=== PATIENT | female | born 1945 | race Caucasian/White ===

== ENCOUNTER 2021-12-15 09:18 | Inpatient (IN) ==
--- NOTE | 2021-11-15 16:09 | PAT Medication Instructions ---
Medication Instructions Date of Service November 15, 2021 Home Medications acetaminophen 500 mg capsule 500 mg PO UD PRN amlodipine 10 mg tablet 10 mg PO QAM aspirin 81 mg tablet,delayed release 81 mg PO HS cholecalciferol (vitamin D3) 50 mcg (2,000 unit) capsule (Vitamin D3) 50 mcg PO QPM famotidine 20 mg tablet 20 mg PO QAM lactobacillus combination no.4 3 billion cell capsule (Probiotic) 3,000 mmu cells PO QAM levothyroxine 50 mcg tablet 50 mcg PO QAM melatonin 5 mg capsule 5 mg PO HS olmesartan 40 mg tablet 40 mg PO QPM sertraline 50 mg tablet 50 mg PO QAM ASK your prescriber and surgeon aspirin 81 mg tablet,delayed release 81 mg PO HS DO NOT take the morning of surgery lactobacillus combination no.4 3 billion cell capsule (Probiotic) 3,000 mmu cells PO QAM Take morning of surgery With a small sip of water, OTHERWISE NOTHING TO EAT OR DRINK AFTER MIDNIGHT: acetaminophen 500 mg capsule 500 mg PO UD PRN (okay to take up to 4 hours prior to surgery if needed) amlodipine 10 mg tablet 10 mg PO QAM famotidine 20 mg tablet 20 mg PO QAM levothyroxine 50 mcg tablet 50 mcg PO QAM sertraline 50 mg tablet 50 mg PO QAM Take evening before surgery acetaminophen 500 mg capsule 500 mg PO UD PRN (if needed) cholecalciferol (vitamin D3) 50 mcg (2,000 unit) capsule (Vitamin D3) 50 mcg PO QPM melatonin 5 mg capsule 5 mg PO HS olmesartan 40 mg tablet 40 mg PO QPM Other Notes If you have any questions please call us at [phone] or [phone] or [phone] or [phone]
--- NOTE | 2021-11-17 10:08 | Anesthesiology Consultation ---
Date of Service November 17, 2021 Assessment & Plan (1) Encounter for pre-operative examination: Chart Review Chart Review: Acceptable Risk for Surgery (pending surgeon ordered PCP clearance, PCP response regarding murmur and possible carotid testing, previous head CT scan and preop Covid testing results ) and Patient seen in Pre Admission Testing - Awaiting PCP clearance scheduled 12/01/21 (will send note to PCP regarding if murmur is stable and if patient has ever had carotid imaging done (carotid bruits vs murmur radiation) - Will attempt to get copy of previous [address] done at [facility] (Dr. Bui office may have copy as well) Per PAT appt on 11/17/21, patient denies any recent travel or large group activities. No known Covid positive exposures or Covid related symptoms. No known Covid infection in the past 90 days. Pt is NOT vaccinated for Covid. Preop Covid testing scheduled 12/13/21 = will await results. Educated on importance of self quarantining, social distancing and wearing mask in public for the patient one week prior to surgery and after Covid testing done Teaching & Discussion Pre-Anesthesia Teaching/Discussion Notes: Instructed NPO after midnight before surgery,except medications with 15 cc of water. Medication instructions provided according to the PAT guidelines. History Surgery Operation Date: 12/15/21 11:50 Proposed Procedures p Left Reversed Total Shoulder Arthroplasty - Viral Corral M.D. Height/Weight Height: 4 ft 10.5 in Weight: 53.6 kg Allergies Allergy/AdvReac Type Severity Reaction Status Date / Time Penicillins Allergy Unknown RASH , Verified 11/14/21 09:25 HANDS AND FACE SWELLING phenytoin [From Dilantin] Allergy Unknown STARTED Verified 11/14/21 09:25 ITCHY...PROGRESSED TO LOSS OF CONSCIOUSNESS Medications Home Medications Medication Instructions Recorded Confirmed Last Taken acetaminophen 500 mg capsule 500 mg PO UD PRN 11/14/21 11/14/21 Unknown amlodipine 10 mg tablet 10 mg PO QAM 11/14/21 11/14/21 Unknown aspirin 81 mg tablet,delayed 81 mg PO HS 11/14/21 11/14/21 Unknown release cholecalciferol (vitamin D3) 50 50 mcg PO QPM 11/14/21 11/14/21 Unknown mcg (2,000 unit) capsule (Vitamin D3) famotidine 20 mg tablet 20 mg PO QAM 11/14/21 11/14/21 Unknown lactobacillus combination no.4 3 3,000 mmu cells PO QAM 11/14/21 11/14/21 Unknown billion cell capsule (Probiotic) levothyroxine 50 mcg tablet 50 mcg PO QAM 11/14/21 11/14/21 Unknown melatonin 5 mg capsule 5 mg PO HS 11/14/21 11/14/21 Unknown olmesartan 40 mg tablet 40 mg PO QPM 11/14/21 11/14/21 Unknown sertraline 50 mg tablet 50 mg PO QAM 11/14/21 11/14/21 Unknown Past Medical History Medical History Age related osteoporosis PT SUSPECTS OSTEOPORISIS ...HX SEVERAL BROKEN BONES Aortic stenosis, mild Per 01/2020 ECHO Arthritis Possible RA, OA, and/or psoriatic arthritis- could not tolerate rheum medications- only follows with PCP currently Environmental allergies Family history of reaction to anesthesia DAUGHTER TAKES A LONG TIME TO COME OUT OF GERD (gastroesophageal reflux disease) Not well controlled - s/p hiatal hernia and medications - did see GI in the past - on Pepcid currently Heart valve problem Mild TR Mild aortic stenosis High cholesterol History of aneurysm DX BRAIN ANEURSYM 2013 ...[place] FOR TESTING/TX OPTIONS DISCUSSED - PT DECLINED TREATMENT - FOLLOWS PCP History of endometrial cancer AGE 27/ s/p hysterectomy- no chemo or XRT needed History of seizure INCONCLUSIVE; HX BLACK OUTS 1984 - NO PROBLEMS SINCE 1989' History of stomach ulcers HTN (hypertension) Hypothyroid Insomnia Low back problem Pre-diabetes Exercise / Class Metabolic Activity II 4-5 Yardwork/Stairs/Walk up hill (one flight of stair of stairs- no chest pain or SOB ) Past Family History Family History Son Family history of colon cancer Mother Family history of diabetes mellitus Brother Family history of diabetes mellitus Past Surgical History Surgical History History of colonoscopy History of esophagogastroduodenoscopy (EGD) History of hysterectomy History of laparotomy BOWEL OBSTRUCTION, ADHESIONS AND BLADDER REPAIR History of left cataract surgery History of liver biopsy History of right cataract surgery History of shoulder surgery RIGHT History of shoulder surgery LEFT History of surgery HIATAL HERNIA REPAIR History of tonsillectomy History of tubal ligation AND "REPAIR WORK" SAME SURGERY 1971 Past Anesthesia History No Hx of Anesthesia Complications and No Family Hx of Anesthesia Complications (with exception to daughter - slow to wake - no hx of reintubation or ICU stay ) History of PONV No Hx of Motion Sickness and History of PONV (one episode with amanda ) Social History Smoking Status: Never smoker Do You Dip or Chew Tobacco: No Hx Alcohol Use: No substance use type: does not use Review of Systems Hx of snoring- no hx of witnessed apnea - no hx of sleep study Hx of blood transfusion - approximately 15 years ago - s/p fall Patient denies chest pain, shortness of breath, dyspnea on exertion, cough, wheezing, palpitations. No hx of stroke, ND. No hx of blood clots. Physical Exam Vital Signs VITALS BP 172/74 (usually well controlled- will check at home over next 1-2 days and call PCP if elevated- patient seeing PCP prior to surgery) P 76 TEMP 98.2 SP02 97% RESP 16 Constitutional no acute distress ENMT Mouth: + small oral opening; no TMJ clicking Thyromental Distance: > or= 3.5 Finger Breadths (3.5) Mallampati Class: II Full dentures on top and bottom Neck neck extension not limited Respiratory normal respiratory effort; no respiratory distress Auscultation: lungs clear to auscultation bilaterally; no wheezes Cardiovascular Rate/Rhythm: regular rate and regular rhythm Heart Sounds: + murmur (III/ murmur ) Vessels: + carotid bruit (bilateral bruit vs murmur radiation ) Musculoskeletal Spine: no pain with cervical ROM Extremities: extremities normal to inspection Psychiatric Orientation: alert Lab Results Anesthesia Preop Results Results Anesthesia Widget: WBC 6.34 K/uL (4.8-10.8) 11/17/21 Hgb 12.8 g/dL (12.0-16.0) 11/17/21 Hct 38.0 % (37-47) 11/17/21 Plt 198 K/uL (130-400) 11/17/21 Na 140 mmol/L (136-145) 11/17/21 K 4.2 mmol/L (3.5-5.1) 11/17/21 Cl 106 mmol/L (98-107) 11/17/21 CO2 28 mmol/L (21-32) 11/17/21 BUN 12 mg/dl (6-23) 11/17/21 Creat 0.76 mg/dl (0.6-1.2) 11/17/21 Glucose Level 102 mg/dl (70-99(Fasting)) H 11/17/21 PT 10.6 Seconds (9.0-12.0) 11/17/21 PTT 27.6 Seconds (21.0-31.0) 11/17/21 INR 1.0 (0.9-1.1) 11/17/21 HA1c 5.5 % (4.5-5.6) 11/17/21 Urine Color Yellow 11/17/21 Urine Appearance Clear (Clear) 11/17/21 Urine pH 5.5 (4.5-7.5) 11/17/21 Urine Specific [place] 1.008 (1.000-1.030) 11/17/21 Urine Protein Negative (Negative) 11/17/21 Urine Glucose (UA) Negative (Negative) 11/17/21 Urine Ketones Negative (Negative) 11/17/21 Urine Blood Negative (Negative) 11/17/21 Urine Nitrite Negative (Negative) 11/17/21 Urine Bilirubin Negative (Negative) 11/17/21 Urine Urobilinogen Negative (Negative) 11/17/21 Urine Leukocyte Esterase Negative (Negative) 11/17/21 Blood Type A Negative 11/17/21 Antibody Screen NEGATIVE 11/17/21 Testing Electrocardiogram Date: 11/17/21 Findings: + NSR @ (76bpm ) Normal EKG per cardio. Chest X-Ray Date: 11/17/21 Findings: + NAD Echocardiogram Date: 02/04/20 EF: 60% LV Function: normal RWMA: + none Other Findings: + diastolic dysfunction (Grade I ); no LVH Calcified AV. Aortic stenosis. AV mean gradient 14mmHg. Mild TR. Cervical Spine Date: 11/17/21 No acute bony abnormality is seen involving the cervical spine on these lateral projections. Osteopenia with spondylotic change. There is no inducible bony subluxation on the flexion/extension views.
--- NOTE | 2021-12-13 19:55 | History & Physical Report ---
Date of Service December 13, 2021 Assessment & Plan (1) Rotator cuff arthropathy of left shoulder: Plan: Her MRI confirms rotator cuff tear arthropathy on her left shoulder. She has already failed a course of conservative treatment including injections and therapy. Advised her that the only viable surgical treatment option at this point would be a reverse total shoulder arthroplasty. I would not recommend a repeat attempt at rotator cuff repair. She is in agreement this plan. Risks, benefits, and alternatives of surgery were explained in detail. The surgical procedure, as well as postoperative recovery and rehabilitation, was also explained in detail. Risks include bleeding; infection; damage to surrounding structures such as nerves, blood vessels, and tendons that run in the area; persistent pain or stiffness; hardware failure; dislocation; brachial plexus palsy; blood clots; or need for further surgery. The patient understands all of this and wishes to proceed with surgery. Preoperative workup was completed today, and informed consent was obtained. History of Present Illness Chief Complaint: Left shoulder pain and weakness Primary Care Provider: Fredo Whitfield MD Ms. Donna hirsch. Again, she is a 76-year-old [id number] female who was referred over from Dr. Bui's team for evaluation of bilateral shoulder pain and weakness, left greater than right, without significant improvement after previous shoulder surgery. She previously underwent a right shoulder rotator cuff repair in February of 2018, and left shoulder rotator cuff repair in May [address] Bui. She denies any recurrent injury after those surgeries. She has had persistent pain and poor function after those previous surgeries. The pain is waking her up at night. She has had numerous injections, last on September 02; these injections gave her no significant improvement in her pain or function. Of note, she is relatively healthy. She denies any coronary artery disease or pulmonary dysfunction. She did have a cerebral aneurysm discovered incidentally in 2013, and no intervention was recommended. She takes an aspirin 81 mg daily for this, but has come off of this in the past for previous surgeries. She denies history of myocardial infarction or stroke. Allergies Allergy/AdvReac Type Severity Reaction Status Date / Time Penicillins Allergy Unknown RASH , Verified 11/14/21 09:25 HANDS AND FACE SWELLING phenytoin [From Dilantin] Allergy Unknown STARTED Verified 11/14/21 09:25 ITCHY...PROGRESSED TO LOSS OF CONSCIOUSNESS Home Medications Medication Instructions Recorded Confirmed Type acetaminophen 500 mg capsule 500 mg PO UD PRN 11/14/21 11/14/21 History amlodipine 10 mg tablet 10 mg PO QAM 11/14/21 11/14/21 History aspirin 81 mg tablet,delayed 81 mg PO HS 11/14/21 11/14/21 History release cholecalciferol (vitamin D3) 50 50 mcg PO QPM 11/14/21 11/14/21 History mcg (2,000 unit) capsule (Vitamin D3) famotidine 20 mg tablet 20 mg PO QAM 11/14/21 11/14/21 History lactobacillus combination no.4 3 3,000 mmu cells PO QAM 11/14/21 11/14/21 History billion cell capsule (Probiotic) levothyroxine 50 mcg tablet 50 mcg PO QAM 11/14/21 11/14/21 History melatonin 5 mg capsule 5 mg PO HS 11/14/21 11/14/21 History olmesartan 40 mg tablet 40 mg PO QPM 11/14/21 11/14/21 History sertraline 50 mg tablet 50 mg PO QAM 11/14/21 11/14/21 History Past Med/Surg History Medical History Age related osteoporosis PT SUSPECTS OSTEOPORISIS ...HX SEVERAL BROKEN BONES Aortic stenosis, mild Per 01/2020 ECHO Arthritis Possible RA, OA, and/or psoriatic arthritis- could not tolerate rheum medications- only follows with PCP currently Environmental allergies Family history of reaction to anesthesia DAUGHTER TAKES A LONG TIME TO COME OUT OF GERD (gastroesophageal reflux disease) Not well controlled - s/p hiatal hernia and medications - did see GI in the past - on Pepcid currently Heart valve problem Mild TR Mild aortic stenosis High cholesterol History of aneurysm DX BRAIN ANEURSYM 2013 ...[place] FOR TESTING/TX OPTIONS DISCUSSED - PT DECLINED TREATMENT - FOLLOWS PCP History of endometrial cancer AGE 27/ s/p hysterectomy- no chemo or XRT needed History of seizure INCONCLUSIVE; HX BLACK OUTS 1984 - NO PROBLEMS SINCE 1989' History of stomach ulcers HTN (hypertension) Hypothyroid Insomnia Low back problem Pre-diabetes Surgical History History of colonoscopy History of esophagogastroduodenoscopy (EGD) History of hysterectomy History of laparotomy BOWEL OBSTRUCTION, ADHESIONS AND BLADDER REPAIR History of left cataract surgery History of liver biopsy History of right cataract surgery History of shoulder surgery RIGHT History of shoulder surgery LEFT History of surgery HIATAL HERNIA REPAIR History of tonsillectomy History of tubal ligation AND "REPAIR WORK" SAME SURGERY 1971 Family History Son Family history of colon cancer Mother Family history of diabetes mellitus Brother Family history of diabetes mellitus Social History Smoking Status: Never smoker Hx Alcohol Use: No Preferred Language: Upper Sorbian Communication Ability: Effective Ward Attendant Required: No Beliefs That Will Affect Care: None Current Living Situation: Spouse Feels Safe at Home: Yes Assistive Devices: Denture - Upper, Denture - Lower and Glasses Physical Exam Physical Exam: Examination of bilateral shoulders reveals significant limitation in shoulder range of motion bilaterally due to pain, with palpable crepitus during motion. She can only achieve about 100 degrees of active abduction, and 15 degrees of external rotation. Rotator cuff strength is globally weak bilaterally. Results & Data ([facility]) Diagnostic Findings Previous x-rays of bilateral shoulders from May 2021 were reviewed. They both show obvious proximal migration of the humeral heads with associated mild glenohumeral joint arthritis. New MRI of the left shoulder from October 27 was reviewed. It confirms a massive, retracted, full-thickness rotator cuff tear involving the entirety of the supraspinatus and the majority of the infraspinatus tendons. The tendon is retracted to the level of the glenoid rim. There is 1 rotator cuff repair anchors noted within the humeral head. The proximal biceps tendon appears subluxated out of the bicipital groove medially. There is moderate glenohumeral joint arthritis.
[~2021-12-15 09:18] MED LIST: ACETAMINOPHEN 500 MG TAB PO SCH; BUPIVACAINE 0.5 % 5 MG/1 ML PF 10ML VIAL ONE; CeleBREX 200 MG CAP PO SCH; FAMOTIDINE 20 MG TAB PO SCH; GABAPENTIN 300 MG CAP PO SCH; LR 15ML/HR IV SCH; METOCLOPRAMIDE HCL 10 MG TABLET PO SCH; TRANEXAMIC ACID 1,000 MG **IV Pre-op IV SCH; VANCOMYCIN HCL 750 MG in SODIUM CHLORIDE 0.9% 250 ML IV SCH; dexAMETHasone 4 MG TAB PO SCH
[2021-12-15] MEDS ORDERED: PROPOFOL IV EMULSION 10 MG/ML 20 ML VIAL IV ONE (09:54)
[2021-12-15] MEDS ORDERED: MIDAZOLAM HCL 1 MG/ML 2ML VIAL ONE (09:55)
[2021-12-15] MEDS ORDERED: fentaNYL citrate 100 MCG/2 ML VIAL ONE (09:56)
[2021-12-15] MEDS ORDERED: LIDOCAINE 2% 2 ML VIAL/AMP(20MG/ML) INFIL ONE (09:57)
[2021-12-15] MEDS ORDERED: ATROPINE SULFATE 0.1 MG/ML 10ML SYR IV PRN (10:23)
[2021-12-15] MEDS ORDERED: ePHEDrine sulfate 50 MG/ML AMP IV PRN (10:23)
[2021-12-15] MEDS ORDERED: ONDANSETRON INJ 2 MG/ML 2 ML VIAL IV PRN ×2 (10:23→16:06)
[2021-12-15] MEDS ORDERED: fentaNYL citrate 100 MCG/2 ML VIAL IV PRN (10:23)
--- NOTE | 2021-12-15 11:39 | History & Physical Bridge Note ---
Date of Service December 15, 2021 History & Physical Bridge Note I have examined the patient, reviewed the History & Physical and in the interval since the performance of the History & Physical I have noted the following changes of clinical significance: no changes noted
[2021-12-15] MEDS ORDERED: ROCURONIUM BROMIDE 10 MG/ML 5 ML VIAL IV ONE (13:29)
[2021-12-15] MEDS ORDERED: GLYCOPYRROLATE 0.2 MG/ML VIAL ONE (14:11)
[2021-12-15] MEDS ORDERED: NEOSTIGMINE METHYLSULFATE 1 MG/ML 10ML VIAL ONE (14:12)
[2021-12-15] MEDS ORDERED: PHENYLEPHRINE HCL 10 MG/ML VIAL ONE (14:14)
[2021-12-15] MEDS ORDERED: ePHEDrine sulfate 50 MG/ML AMP ONE (14:14)
--- NOTE | 2021-12-15 14:27 | Operative Report ---
Post Operative Report Pre & Post Diagnosis Operation Date: 12/15/21 11:25 Pre-Op Diagnosis: Left shoulder rotator cuff tear arthropathy Post-Op Diagnosis: Left shoulder rotator cuff tear arthropathy I identified the patient and participated in the time-out.: Yes Procedure Operation Date: 12/15/21 11:25 Actual Procedures Left reverse total shoulder arthroplasty (24870) Open biceps tenodesis (04332) - Viral Corral M.D. Surgeon Viral Corral Global Position System Technician Chase Cardoso PA-C Estimated Blood Loss 60 Findings Consistent with Post-Op Diagnosis Specimens None Drains None Anesthesia Type General Regional Complications none Disposition Disposition: Recovery Room Indications Ms. Thompson is a 76-year-old female who previously underwent a left shoulder rotator cuff repair in May 2019 with persistent pain and poor function in that shoulder. History, clinical exam, and imaging were consistent with the above diagnosis. Risks, benefits, and alternatives of surgery were explained in detail. The patient understood all this and wished to proceed. Description of Procedure Components Implanted: Tornier Reverse Total Shoulder implants Perform glenoid baseplate: 25mm, 15 degree full wedge with 6.5mm central screw and 5.0mm peripheral screws Glenosphere: 36mm standard Ascend Flex humeral stem: 2B Standard length (70mm) Humeral tray: 1.5 mm offset, +0mm thickness Polyethylene insert: 36mm, +6mm thickness Patient was identified in the preoperative holding area. Operative extremity was marked. Regional blockade was given by the Anesthesia Staff. Patient was then brought back to the operating room, and general anesthesia was induced without complication. Appropriate weight-based dose of Ancef was infused intravenously for antibiotic prophylaxis. The patient was then placed in the beachchair position. Left arm was then prepped and draped in a standard sterile fashion using Chlorhexidine prep. A standard deltopectoral incision was made through the skin and subcutaneous tissue. The cephalic vein was identified and retracted medially. Small branches to the deltoid were coagulated as necessary. The clavipectoral fascia was then incised and the subdeltoid space was opened. Nonabsorbable sutures were noted coming from a single anchor into the humeral head. The sutures were not within any rotator cuff tissue. The rotator cuff was found to be deficient, and I therefore decided to perform a reverse total shoulder arthroplasty as planned preoperatively. The biceps tendon was identified within the bicipital groove and tenodesed at the superior border of the pectoralis tendon with #2 FiberWire suture. The biceps tendon was then divided proximal to the tenodesis site and the rotator interval was opened. The proximal portion of the biceps tendon was excised. The remaining subscapularis tendon was elevated subperiosteally off of the lesser tuberosity. The glenohumeral joint was then dislocated, and large osteophytes were debrided with a ronguer. The humeral head cut was then made in the appropriate inclination and version using the cutting guide. The intramedullary canal of the humerus was then opened with a canal finder. A single rotator cuff repair anchor was found within the humeral shaft and removed. The humeral canal was then sequentially broached to the appropriate size. A protective cap was then placed on top of the humeral trial. I then turned my attention to the glenoid. The proximal stump of the biceps tendon was excised, along with the labrum circumferentially around the glenoid. The Blueprint drill guide was then positioned on the glenoid, and the guidepin was then inserted. The 15 degree angled reamer was then inserted over the guidepin and an reamed to an appropriate depth. The central screw hole was drilled, and appropriate length 6.5mm central screw was selected. The baseplate was then implanted into place according to our preoperative Blueprint plan by tightening down the central screw. A peripheral 5mm nonlocking screw was placed postero-superiorly first for additional compression of the baseplate, and then additional locking 5 mm peripheral screws were placed to complete fixation of the baseplate. Glenosphere was then impacted and secured. A trial humeral tray and insert were placed on the trial humeral stem, and a trial reduction was carried out. Once I achieved acceptable joint stability and range of motion with the trial implants, the final humeral implants were assembled on the back table and then impacted into position. I then took the shoulder through full range of motion to ensure good stability and acceptable motion. Wound was then copiously irrigated with sterile saline. Deep fascia was closed with 0 V-lock suture. Subcutaneous tissue was closed with 2-0 V-lock, and skin was closed with 3-0 V-lock. Skin was then sealed with Dermabond. Sterile dressings were then applied with a waterproof silver-impregnated dressing, and the arm was placed into a sling. The patient was awakened from anesthesia and taken to the Post Anesthesia Care Unit in stable condition. There were no immediate complications from the procedure. I was present and scrubbed for the entire procedure, with the exception of final skin closure and dressing application. Due to the complex nature of the procedure, the entire surgery was performed with the operational assistance of Chase Cardoso PA-C. The medical practice assistant, under direct supervision, was involved in the performance of all aspects of the surgical procedure including hemostasis, tissue incision and retraction, instrument management, patient positioning, and wound closure. I attest to the content of the Intraoperative Record and any orders documented therein. Any exceptions are noted below.
--- NOTE | 2021-12-15 15:15 | Anesthesiology Progress Note ---
Date of Service December 15, 2021 Anesthesia Post Procedure Vital Signs Vital Signs: Temp Pulse Pulse Resp BP Pulse Ox 12/15/21 15:05 81 15 115/59 L 94 12/15/21 14:55 78 22 127/67 100 12/15/21 14:45 73 19 135/79 100 12/15/21 14:36 36.2 C L 82 19 154/68 H 99 12/15/21 10:07 37 C 79 20 141/80 H 97 Pain Intensity Left Shoulder: Pain Intensity: 6 Transfer of Care Handoff Completed per policy Notes Mental Status: alert / awake / arousable and participated in evaluation Patient Amnestic to Procedure: Yes Nausea / Vomiting: adequately controlled Pain: adequately controlled Airway Patency, RR, SpO2: stable & adequate BP & HR: stable & adequate Hydration State: stable & adequate Anesthetic Complications: no major complications apparent and Pt Satisfied with anesthetic care
--- NOTE | 2021-12-15 15:34 | XRay Report ---
XR shoulder LT min 2V routine CLINICAL HISTORY: Post shoulder surgery COMPARISON STUDY: None. FINDINGS: Status post reverse left total shoulder arthroplasty. The hardware is intact. No fracture o r dislocation. Soft tissue gas within the left shoulder consistent with the recent postoperative alejo ge. Left basilar linear density consistent with subsegmental atelectasis. IMPRESSION: Status post reverse left total shoulder arthroplasty. No evidence for hardware complicat ion ACT 112: Negative or not required by law. Electronically signed by: Quentin John M.D. 12/15/2021 3:32 PM
[2021-12-15] MEDS ORDERED: NALOXONE HCL 0.4 MG/1 ML VIAL/CARP IV PRN (16:06)
[2021-12-15] MEDS ORDERED: METOCLOPRAMIDE HCL INJ 5 MG/ML 2 ML VIAL IV PRN (16:06)
[2021-12-15] MEDS ORDERED: MAGNESIUM HYDROXIDE SUSP 30 ML UDC PO PRN (16:06)
[2021-12-15] MEDS ORDERED: bisacodyL 10 MG SUPP PR PRN (16:06)
[2021-12-15] MEDS ORDERED: oxyCODONE HCL IR 5 MG TAB (IMMEDIATE RELEASE) PO PRN (16:06)
[2021-12-15] MEDS ORDERED: COUGH DROP (SUGAR FREE) LOZ 24 LOZ/1 BOX BUCCAL ONE (16:57)
[2021-12-15] MEDS: SODIUM CHLORIDE 0.9% 1000ML 1,000 ML IV SCH (17:31)
[2021-12-15] MEDS: ceFAZolin 1000MG 1,000 MG/7.5 ML SYR IV SCH (20:16)
[2021-12-15] MEDS: DOCUSATE SODIUM 100 MG CAP PO SCH (20:16)
[2021-12-15] MEDS: ACETAMINOPHEN 500 MG TAB PO SCH (20:18)
[2021-12-15] MEDS ORDERED: CHOLECALCIFEROL 1,000 UNITS 25 MCG TAB PO SCH (21:00)
[2021-12-15] MEDS ORDERED: OLMESARTAN MEDOXOMIL 40 MG TAB PO SCH (21:00)
[2021-12-15] MEDS ORDERED: SENNA 8.6 MG TAB PO SCH (21:00)
[2021-12-15] MEDS ORDERED: MELATONIN 3 MG TAB PO SCH (22:00)
[2021-12-16] MEDS: SODIUM CHLORIDE 0.9% 1000ML 1,000 ML IV SCH (04:42)
[2021-12-16] MEDS: ceFAZolin 1000MG 1,000 MG/7.5 ML SYR IV SCH (05:28)
[2021-12-16] MEDS: ACETAMINOPHEN 500 MG TAB PO SCH (05:28)
[2021-12-16] MEDS ORDERED: IBUPROFEN 600 MG TAB PO SCH (06:00)
[2021-12-16 06:29] LABS: Basophils # (auto) 0.01 K/uL (0-0.2); Basophils % (auto) 0.1 %; Hematocrit (blood only) 32.4 % (37-47); Hemoglobin 10.5 g/dL (12.0-16.0); Immature Granulocytes # (auto) 0.01 K/uL (0.00-0.02); Immature Granulocytes % (auto) 0.1 %; Lymphocytes # (auto) 1.28 K/uL (1.2-3.4); Lymphocytes % (auto) 16.7 %; Mean Corpuscular Hemoglobin 27.8 pg (25-34); Mean Corpuscular Hgb Conc 32.4 g/dL (32-36); Mean Corpuscular Volume 85.7 fL (80-100); Mean Platelet Volume 10.4 fL (7.4-10.4); Monocytes # (auto) 0.59 K/uL (0.11-0.59); Monocytes % (auto) 7.7 %; Neutrophils # (auto) 5.78 K/uL (1.4-6.5); Neutrophils % (auto) 75.4 %; Platelet Count 180 K/uL (130-400); RDW Coefficient of Variation 13.7 % (11.5-14.5); RDW Standard Deviation 42.7 fL (36.4-46.3); Red Blood Count 3.78 M/uL (4.2-5.4); White Blood Count 7.67 K/uL (4.8-10.8)
[2021-12-16] MEDS ORDERED: LEVOTHYROXINE SODIUM 50 MCG TABLET PO SCH (06:30)
[2021-12-16 06:56] LABS: Calcium 8.8 mg/dl (8.5-10.1); Creatinine Clr Calc Pharmacy 37.6 ml/min; Est GFR (African American) 70.5 ml/min; Est GFR (Non-African American) 60.9 ml/min; Potassium 4.1 mmol/L (3.5-5.1)
[2021-12-16] MEDS: DOCUSATE SODIUM 100 MG CAP PO SCH (08:17)
--- NOTE | 2021-12-16 08:47 | Orthopedic Progress Note ---
Date of Service December 16, 2021 Assessment & Plan (1) Rotator cuff arthropathy of left shoulder: Plan: Postop day 1 status post left reverse total shoulder arthroplasty PT/OT protocols. Nonweightbearing left upper extremity. DVT prophylaxis-aspirin p.o. daily, SCDs, SINA ruiz Pain management as written. DC planning-patient is planning for outpatient PT upon discharge. Plan for discharge to home today. Admission and Anticipated Discharge Date Admission Date: December 15, 2021 Subjective Postop day 1 Patient sitting up at the bedside in her chair eating breakfast. No complaints this morning. Pain is controlled. States she has some residual numbness in her index finger this morning but is otherwise doing well. Denies shortness of breath, chest pain, lightheadedness. Physical Exam Physical Exam: Silverlon dressing is clean, dry, and intact. He has good range of motion of her left wrist and fingers. Some slight residual numbness left in the index finger. Cap refill is less than 2 seconds. [address]ling is in place. Results & Data ([facility]) Vital Signs (Past 12 Hours) Vital Signs Temp Pulse Pulse Resp BP Pulse Ox 12/16/21 08:42 72 114/66 12/16/21 08:22 36.9 C 71 78 16 118/64 92 12/16/21 07:33 36.9 C 78 16 118/64 92 12/16/21 03:01 36.3 C L 80 14 99/59 L 93 12/15/21 23:01 36.7 C 74 15 112/65 92 Laboratory Results Laboratory Results WBC 7.67 K/uL (4.8-10.8) 12/16/21 05:32 RBC 3.78 M/uL (4.2-5.4) L 12/16/21 05:32 Hgb 10.5 g/dL (12.0-16.0) L 12/16/21 05:32 Hct 32.4 % (37-47) L 12/16/21 05:32 MCV 85.7 fL (80-100) 12/16/21 05:32 MCH 27.8 pg (25-34) 12/16/21 05:32 MCHC 32.4 g/dL (32-36) 12/16/21 05:32 RDW Std Deviation 42.7 fL (36.4-46.3) 12/16/21 05:32 RDW Coeff of Lynette 13.7 % (11.5-14.5) 12/16/21 05:32 Plt Count 180 K/uL (130-400) 12/16/21 05:32 MPV 10.4 fL (7.4-10.4) 12/16/21 05:32 Immature Gran % (Auto) 0.1 % 12/16/21 05:32 Neut % (Auto) 75.4 % 12/16/21 05:32 Lymph % (Auto) 16.7 % 12/16/21 05:32 Parke % (Auto) 7.7 % 12/16/21 05:32 Eos % (Auto) 0.0 % 12/16/21 05:32 Baso % (Auto) 0.1 % 12/16/21 05:32 Neut # (Auto) 5.78 K/uL (1.4-6.5) 12/16/21 05:32 Lymph # (Auto) 1.28 K/uL (1.2-3.4) 12/16/21 05:32 Parke # (Auto) 0.59 K/uL (0.11-0.59) 12/16/21 05:32 Eos # (Auto) 0.00 K/uL (0-0.5) 12/16/21 05:32 Baso # (Auto) 0.01 K/uL (0-0.2) 12/16/21 05:32 Immature Gran # (Auto) 0.01 K/uL (0.00-0.02) 12/16/21 05:32 Sodium 139 mmol/L (136-145) 12/16/21 05:32 Potassium 4.1 mmol/L (3.5-5.1) 12/16/21 05:32 Chloride 109 mmol/L (98-107) H 12/16/21 05:32 Carbon Dioxide 25 mmol/L (21-32) 12/16/21 05:32 Anion Gap 5 (3-11) 12/16/21 05:32 BUN 20 mg/dl (6-23) 12/16/21 05:32 Creatinine 0.91 mg/dl (0.6-1.2) 12/16/21 05:32 Est Cr Clr Drug Dosing 37.6 ml/min 12/16/21 05:32 Est GFR ( Amer) 70.5 ml/min 12/16/21 05:32 Est GFR (Non-Af Amer) 60.9 ml/min 12/16/21 05:32 BUN/Creatinine Ratio 22.0 (10-20) H 12/16/21 05:32 Glucose 99 mg/dl (70-99(Fasting)) 12/16/21 05:32 Calcium 8.8 mg/dl (8.5-10.1) 12/16/21 05:32 SARS-CoV-2, RNA, NAAT NEGATIVE (NEGATIVE) 12/15/21 09:38 Impressions Shoulder X-Ray 12/15/21 14:42 XR shoulder LT min 2V routine CLINICAL HISTORY: Post shoulder surgery COMPARISON STUDY: None. FINDINGS: Status post reverse left total shoulder arthroplasty. The hardware is intact. No fracture or dislocation. Soft tissue gas within the left shoulder consistent with the recent postoperative change. Left basilar linear density consistent with subsegmental atelectasis. IMPRESSION: Status post reverse left total shoulder arthroplasty. No evidence for hardware complication ACT 112: Negative or not required by law. Electronically signed by: Quentin John M.D. 12/15/2021 3:32 PM
[2021-12-16] MEDS ORDERED: amLODIPine BESYLATE 5 MG TAB PO SCH (09:00)
[2021-12-16] MEDS ORDERED: MULTIVITAMIN TAB PO SCH (09:00)
[2021-12-16] MEDS ORDERED: SERTRALINE HCL 50 MG TABLET PO SCH (09:00)
[2021-12-16] MEDS ORDERED: ASPIRIN 325 MG ECTAB PO SCH (09:00)
[2021-12-16] MEDS ORDERED: FAMOTIDINE 20 MG TAB PO SCH (09:00)
== END 2021-12-16 12:31 | disposition home or self-care (01) | DRG 483 ==
LOC: ASU 09:18 → 3E 14:42

== ENCOUNTER 2022-04-27 06:39 | Inpatient (IN) ==
--- NOTE | 2022-04-20 09:32 | Anesthesiology Consultation ---
Date of Service April 20, 2022 Assessment & Plan (1) Encounter for pre-operative examination: Chart Review Chart Review: Acceptable Risk for Surgery and Patient NOT seen in Pre Admission Testing Consults Requested none History Surgery Operation Date: 04/27/22 07:00 Proposed Procedures p Right Total Shoulder Arthroplasty Reverse - Viral Corral M.D. Height/Weight Height: 4 ft 10 in Weight: 51.71 kg Allergies Allergy/AdvReac Type Severity Reaction Status Date / Time phenytoin [From Dilantin] Allergy Unknown STARTED Verified 04/19/22 12:38 ITCHY...PROGRESSED TO LOSS OF CONSCIOUSNESS Medications Home Medications Medication Instructions Recorded Confirmed Last Taken amlodipine 10 mg tablet 10 mg PO QAM 11/14/21 04/19/22 12/15/21 05:30 cholecalciferol (vitamin D3) 50 50 mcg PO QPM 11/14/21 04/19/22 12/14/21 23:00 mcg (2,000 unit) capsule (Vitamin D3) famotidine 20 mg tablet 20 mg PO QAM 11/14/21 04/19/22 12/15/21 05:30 levothyroxine 50 mcg tablet 50 mcg PO QAM 11/14/21 04/19/22 12/15/21 05:30 melatonin 5 mg capsule 5 mg PO HS 11/14/21 04/19/22 12/14/21 23:00 olmesartan 40 mg tablet 40 mg PO QPM 11/14/21 04/19/22 12/14/21 23:00 sertraline 50 mg tablet 100 mg PO QAM 11/14/21 04/19/22 12/15/21 05:30 Past Medical History Medical History Age related osteoporosis PT SUSPECTS OSTEOPORISIS ...HX SEVERAL BROKEN BONES Anxiety and depression Aortic stenosis, mild Per 01/2020 ECHO Arthritis Possible RA, OA, and/or psoriatic arthritis- could not tolerate rheum medications- only follows with PCP currently Environmental allergies Family history of reaction to anesthesia DAUGHTER TAKES A LONG TIME TO COME OUT OF GERD (gastroesophageal reflux disease) Not well controlled - s/p hiatal hernia and medications - did see GI in the past - on Pepcid currently Heart valve problem Mild TR Mild aortic stenosis TO FOLLOW UP WITH DR JACKSON IN JUN 2022 (NO JOVITA SCHEDULED OF PRESENT) High cholesterol History of aneurysm DX BRAIN ANEURSYM 2013 ...[place] FOR TESTING/TX OPTIONS DISCUSSED - PT DECLINED TREATMENT - FOLLOWS PCP History of endometrial cancer AGE 27/ s/p hysterectomy- no chemo or XRT needed History of seizure INCONCLUSIVE; HX BLACK OUTS 1984 - NO PROBLEMS SINCE 1989' History of stomach ulcers HTN (hypertension) Hypothyroid Insomnia Low back problem Pre-diabetes Past Family History Family History Son Family history of colon cancer Mother Family history of diabetes mellitus Brother Family history of diabetes mellitus Past Surgical History Surgical History History of colonoscopy History of esophagogastroduodenoscopy (EGD) History of hysterectomy History of laparotomy BOWEL OBSTRUCTION, ADHESIONS AND BLADDER REPAIR History of left cataract surgery History of liver biopsy History of reverse total replacement of left shoulder joint DECEMBER 2021 History of right cataract surgery History of shoulder surgery RIGHT History of shoulder surgery LEFT History of surgery HIATAL HERNIA REPAIR History of tonsillectomy History of tubal ligation AND "REPAIR WORK" SAME SURGERY 1971 Social History Smoking Status: Never smoker Do You Dip or Chew Tobacco: No Hx Alcohol Use: No Hx Substance Use: No substance use type: does not use Testing Laboratory Results 03/24/22 WBC 7.0 Hgb 13.1 platelet 223 Na 138 K 4.1 Cl 102 CO2 28 BUN 13 Cr 0.8 glucose 97 Electrocardiogram Date: 11/17/21 Normal sinus rhythm, rate 76 bpm Normal ECG When compared with ECG of 25-FEB-2018 17:30, No significant change was found Confirmed by Chaz Sharma ([id number]) on 11/17/2021 10:21:44 AM Chest X-Ray Date: 11/17/21 Findings: + NAD Echocardiogram Date: 12/13/21 Normal LV wall thickness. Normal wall motion. Normal LV systolic function. Mild MR, mild TR, mild aortic insufficiency, mild pulmonic insufficiency, and mod Normal PA pressures There is normal LV diastolic function Cervical Spine Date: 11/17/21 IMPRESSION: 1. No acute bony abnormality is seen involving the cervical spine on these lateral projections. 2. Osteopenia with spondylotic change as above. 3. There is no inducible bony subluxation on the flexion/extension views.
--- NOTE | 2022-04-26 22:21 | History & Physical Report ---
Date of Service April 26, 2022 Assessment & Plan (1) Right rotator cuff tear arthropathy: Plan: She has persistent right shoulder pain and limited function. History, exam, and imaging are consistent with rotator cuff tear arthropathy on this side as well. She has failed a long course of conservative treatment including numerous injections. This pain and functional limitation is bothering her to the point where she would like to pursue surgical intervention on this side as well. He is very reasonable. Her best surgical option is a reverse total shoulder arthroplasty on this side as well, and she is in agreement. Risks, benefits, and alternatives of surgery were explained in detail. The surgical procedure, as well as postoperative recovery and rehabilitation, was also explained in detail. Risks include bleeding; infection; damage to surrounding structures such as nerves, blood vessels, and tendons that run in the area; persistent pain or stiffness; hardware failure; dislocation; brachial plexus palsy; blood clots; or need for further surgery. The patient understands all of this and wishes to proceed with surgery. Informed consent was obtained. History of Present Illness Chief Complaint: Right shoulder pain Primary Care Provider: NO PCP Ms. Thompson returns for her right shoulder. Again, she has noticed worsening pain in her right shoulder since she has been relying on it more after her left shoulder replacement. Again, when she first presented to me, she had bilateral shoulder pain and weakness, left greater than right, without significant improvement after previous shoulder surgeries by Dr. Bui. She previously underwent a right shoulder rotator cuff repair in February of 2018. She denies any recurrent injury to her right shoulder after that surgery, but has had persistent pain and poor function in her right shoulder. The pain is waking her up at night. She has had at least 3 injections in that right shoulder, the last being around August 2021, without significant improvement in her pain or function. Allergies Allergy/AdvReac Type Severity Reaction Status Date / Time phenytoin [From Dilantin] Allergy Unknown STARTED Verified 04/19/22 12:38 ITCHY...PROGRESSED TO LOSS OF CONSCIOUSNESS Home Medications Medication Instructions Recorded Confirmed Type amlodipine 10 mg tablet 10 mg PO QAM 11/14/21 04/19/22 History cholecalciferol (vitamin D3) 50 50 mcg PO QPM 11/14/21 04/19/22 History mcg (2,000 unit) capsule (Vitamin D3) famotidine 20 mg tablet 20 mg PO QAM 11/14/21 04/19/22 History levothyroxine 50 mcg tablet 50 mcg PO QAM 11/14/21 04/19/22 History melatonin 5 mg capsule 5 mg PO HS 11/14/21 04/19/22 History olmesartan 40 mg tablet 40 mg PO QPM 11/14/21 04/19/22 History sertraline 50 mg tablet 100 mg PO QAM 11/14/21 04/19/22 History Past Med/Surg History Medical History Age related osteoporosis PT SUSPECTS OSTEOPORISIS ...HX SEVERAL BROKEN BONES Anxiety and depression Aortic stenosis, mild Per 01/2020 ECHO Arthritis Possible RA, OA, and/or psoriatic arthritis- could not tolerate rheum medications- only follows with PCP currently Environmental allergies Family history of reaction to anesthesia DAUGHTER TAKES A LONG TIME TO COME OUT OF GERD (gastroesophageal reflux disease) Not well controlled - s/p hiatal hernia and medications - did see GI in the past - on Pepcid currently Heart valve problem Mild TR Mild aortic stenosis TO FOLLOW UP WITH DR JACKSON IN JUN 2022 (NO JOVITA SCHEDULED OF PRESENT) High cholesterol History of aneurysm DX BRAIN ANEURSYM 2013 ...HINES FOR TESTING/TX OPTIONS DISCUSSED - PT DECLINED TREATMENT - FOLLOWS PCP History of endometrial cancer AGE 27/ s/p hysterectomy- no chemo or XRT needed History of seizure INCONCLUSIVE; HX BLACK OUTS 1984 - NO PROBLEMS SINCE 1989' History of stomach ulcers HTN (hypertension) Hypothyroid Insomnia Low back problem Pre-diabetes Surgical History History of colonoscopy History of esophagogastroduodenoscopy (EGD) History of hysterectomy History of laparotomy BOWEL OBSTRUCTION, ADHESIONS AND BLADDER REPAIR History of left cataract surgery History of liver biopsy History of reverse total replacement of left shoulder joint DECEMBER 2021 History of right cataract surgery History of shoulder surgery RIGHT History of shoulder surgery LEFT History of surgery HIATAL HERNIA REPAIR History of tonsillectomy History of tubal ligation AND "REPAIR WORK" SAME SURGERY 1970 Family History Son Family history of colon cancer Mother Family history of diabetes mellitus Brother Family history of diabetes mellitus Social History Smoking Status: Never smoker Hx Alcohol Use: No Hx Substance Use: No Preferred Language: Hebrew Communication Ability: Effective Defect Cutter Required: No Beliefs That Will Affect Care: None Current Living Situation: Spouse Feels Safe at Home: Yes Assistive Devices: Denture - Upper, Denture - Lower and Glasses Physical Exam Physical Exam: Examination of the right shoulder reveals significant limitation in shoulder range of motion due to pain, with palpable crepitus during motion. She can only achieve about 100 degrees of active abduction, and 15 degrees of external rotation. Rotator cuff strength is globally weak. Results & Data ([facility]) Diagnostic Findings Previous x-rays of the right shoulder from May 2021 were reviewed. They show obvious proximal migration of the humeral head with associated mild glenohumeral joint arthritis. New MRI of the right shoulder from March 06 was reviewed. Numerous sequences are severely limited by motion artifact, and are basically nondiagnostic. However, it does show that she has a massive, retracted, full-thickness rotator cuff tear involving the entirety of the supraspinatus and infraspinatus tendons, with retraction to the glenoid rim. There is near complete associated fatty atrophy of the muscle bellies. There is proximal migration of the humeral head, with remodeling changes at the humeral head and undersurface of the acromion, all consistent with rotator cuff tear arthropathy.
[~2022-04-27 06:39] MED LIST changes: -CeleBREX 200 MG CAP PO SCH; -GABAPENTIN 300 MG CAP PO SCH; +PREGABALIN 75 MG CAP PO SCH; -VANCOMYCIN HCL 750 MG in SODIUM CHLORIDE 0.9% 250 ML IV SCH
[2022-04-27] MEDS ORDERED: MIDAZOLAM HCL 1 MG/ML 2ML VIAL ONE (08:59)
--- NOTE | 2022-04-27 09:01 | History & Physical Bridge Note ---
Date of Service April 27, 2022 History & Physical Bridge Note I have examined the patient, reviewed the History & Physical and in the interval since the performance of the History & Physical I have noted the following changes of clinical significance: no changes noted
[2022-04-27] MEDS ORDERED: ePHEDrine sulfate 50 MG/ML AMP IV PRN (09:05)
[2022-04-27] MEDS ORDERED: fentaNYL citrate 100 MCG/2 ML VIAL IV PRN (09:05)
[2022-04-27] MEDS ORDERED: ATROPINE SULFATE 0.1 MG/ML 10ML SYR IV PRN (09:05)
[2022-04-27] MEDS ORDERED: ONDANSETRON INJ 2 MG/ML 2 ML VIAL IV PRN ×2 (09:05→14:27)
[2022-04-27] MEDS ORDERED: FAMOTIDINE 20 MG TAB ONE (09:07)
[2022-04-27] MEDS ORDERED: ACETAMINOPHEN 500 MG TAB ONE (09:07)
[2022-04-27] MEDS ORDERED: METOCLOPRAMIDE HCL 10 MG TABLET ONE (09:07)
[2022-04-27] MEDS ORDERED: dexAMETHasone 4 MG TAB PO ONE (09:07)
[2022-04-27] MEDS ORDERED: ceFAZolin 2,000 MG/15 ML IV PUSH IV ONE (09:08)
[2022-04-27] MEDS ORDERED: fentaNYL citrate 100 MCG/2 ML VIAL ONE (09:35)
[2022-04-27] MEDS: ceFAZolin 2000MG 2,000 MG/15 ML SYR IV SCH ×3 (09:36→18:12)
[2022-04-27] MEDS ORDERED: GLYCOPYRROLATE 0.2 MG/ML VIAL ONE (12:37)
[2022-04-27] MEDS ORDERED: ePHEDrine sulfate 50 MG/ML AMP ONE (12:37)
[2022-04-27] MEDS ORDERED: NEOSTIGMINE METHYLSULFATE 1 MG/ML 10ML VIAL ONE (12:37)
[2022-04-27] MEDS ORDERED: ONDANSETRON INJ 2 MG/ML 2 ML VIAL ONE (12:37)
[2022-04-27] MEDS ORDERED: PHENYLEPHRINE HCL 10 MG/ML VIAL ONE (12:37)
[2022-04-27] MEDS ORDERED: PROPOFOL IV EMULSION 10 MG/ML 20 ML VIAL IV ONE (12:37)
--- NOTE | 2022-04-27 12:42 | Operative Report ---
Post Operative Report Pre & Post Diagnosis Operation Date: 04/27/22 09:30 Pre-Op Diagnosis: Right shoulder rotator cuff tear arthropathy Post-Op Diagnosis: Right shoulder rotator cuff tear arthropathy I identified the patient and participated in the time-out.: Yes Procedure Operation Date: 04/27/22 09:30 Actual Procedures Right reverse total shoulder arthroplasty (97536) Open biceps tenodesis (77137) - Viral Corral M.D. Surgeon Viral Corral Rubber Mold Maker Param Weathers PA-C Estimated Blood Loss 50 Findings Consistent with Post-Op Diagnosis Specimens None Drains None Anesthesia Type General Regional Complications none Disposition Disposition: Recovery Room Indications Ms. Thompson is a 77-year-old female with right shoulder pain and weakness. History, clinical exam, and imaging were consistent with the above diagnosis. Risks, benefits, and alternatives of surgery were explained in detail. The patient understood all this and wished to proceed. Description of Procedure Components Implanted: Tornier Reverse Total Shoulder implants Perform glenoid baseplate: 25mm, 15 degree full wedge with 6.5mm central screw and 5.0mm peripheral screws Glenosphere: 36mm standard Ascend Flex humeral stem: 2B Standard length (70mm) Humeral tray: 1.5 mm offset, +0mm thickness Polyethylene insert: 36mm, +6mm thickness Patient was identified in the preoperative holding area. Operative extremity was marked. Regional blockade was given by the Anesthesia Staff. Patient was then brought back to the operating room, and general anesthesia was induced without complication. Appropriate weight-based dose of Ancef was infused intravenously for antibiotic prophylaxis. The patient was then placed in the beachchair position. Right arm was then prepped and draped in a standard sterile fashion using Chlorhexidine prep. A standard deltopectoral incision was made through the skin and subcutaneous tissue. The cephalic vein was identified and retracted medially. Small branches to the deltoid were coagulated as necessary. The clavipectoral fascia was then incised and the subdeltoid space was opened. The rotator cuff was found to be deficient, and I therefore decided to perform a reverse total shoulder arthroplasty as planned preoperatively. The biceps tendon was identified within the bicipital groove and tenodesed at the superior border of the pectoralis tendon with #2 FiberWire suture. The biceps tendon was then divided proximal to the tenodesis site and the rotator interval was opened. The proximal portion of the biceps tendon was excised. The remaining subscapularis tendon was elevated subperiosteally off of the lesser tuberosity. The glenohumeral joint was then dislocated, and large osteophytes were debrided with a ronguer. The intramedullary canal of the humerus was then opened with a canal finder. The humeral head cut was then made in the appropriate inclination and version using the cutting guide. The humeral canal was then sequentially broached to the appropriate size. A protective cap was then placed on top of the humeral trial. I then turned my attention to the glenoid. The proximal stump of the biceps tendon was excised, along with the labrum circumferentially around the glenoid. The Blueprint drill guide was then positioned on the glenoid, and the guidepin was then inserted. The 15 degree angled reamer was then inserted over the guidepin and an reamed to an appropriate depth. The central screw hole was drilled, and appropriate length 6.5mm central screw was selected. The baseplate was then implanted into place according to our preoperative Blueprint plan by tightening down the central screw. A peripheral 5mm nonlocking screw was placed postero-superiorly first for additional compression of the baseplate, and then additional locking 5 mm peripheral screws were placed to complete fixation of the baseplate. Glenosphere was then impacted and secured. A trial humeral tray and insert were placed on the trial humeral stem, and a trial reduction was carried out. Once I achieved acceptable joint stability and range of motion with the trial implants, the final humeral implants were assembled on the back table and then impacted into position. I then took the shoulder through full range of motion to ensure good stability and acceptable motion. Wound was then copiously irrigated with sterile saline. Deep fascia was closed with 0 V-lock suture. Subcutaneous tissue was closed with 2-0 V-lock, and skin was closed with 3-0 V-lock. Skin was then sealed with Dermabond. Sterile dressings were then applied with a waterproof silver-impregnated dressing, and the arm was placed into a sling. The patient was awakened from anesthesia and taken to the Post Anesthesia Care Unit in stable condition. There were no immediate complications from the procedure. I was present and scrubbed for the entire procedure, with the exception of final skin closure and dressing application. Due to the complex nature of the procedure, the entire surgery was performed with the operational assistance of Param Weathers PA-C. The offset press assistant, under direct supervision, was involved in the performance of all aspects of the surgical procedure including hemostasis, tissue incision and retraction, instrument management, patient positioning, and wound closure. I attest to the content of the Intraoperative Record and any orders documented therein. Any exceptions are noted below.
--- NOTE | 2022-04-27 13:35 | XRay Report ---
XR shoulder RT min 2V routine CLINICAL HISTORY: Post shoulder surgery COMPARISON STUDY: None. FINDINGS: Status post reverse right total shoulder arthroplasty. The hardware is intact. No fracture or dislocation. IMPRESSION: Status post reverse right total shoulder arthroplasty. No evidence for hardware complica tion. ACT 112: Negative or not required by law. Electronically signed by: Quentin John M.D. 04/27/2022 1:34 PM
--- NOTE | 2022-04-27 14:07 | Anesthesiology Progress Note ---
Date of Service April 27, 2022 Anesthesia Post Procedure Vital Signs Vital Signs: Temp Pulse Pulse Resp BP Pulse Ox O2 Del Method 04/27/22 13:30 66 18 121/53 L 95 Oxymask 04/27/22 13:50 97.2 F L 68 16 113/50 L 95 Oxymask 04/27/22 13:40 64 16 108/50 L 95 Oxymask 04/27/22 13:20 70 19 129/68 96 Oxymask 04/27/22 13:10 96.8 F L 72 20 133/79 97 Oxymask 04/27/22 10:55 98.2 F 71 20 117/52 L 93 Room Air 04/27/22 10:45 98.1 F 69 20 111/55 L 93 Room Air 04/27/22 10:35 96.6 F L 71 17 123/62 93 Room Air 04/27/22 10:25 96.6 F L 73 17 129/57 L 94 Room Air 04/27/22 10:15 73 18 137/60 94 Room Air 04/27/22 10:05 97.2 F L 74 18 138/71 94 Room Air 04/27/22 07:31 98.2 F 78 18 148/69 H 98 Room Air O2 Flow Rate 04/27/22 13:30 4 04/27/22 13:50 2 04/27/22 13:40 2 04/27/22 13:20 6 04/27/22 13:10 6 04/27/22 10:55 04/27/22 10:45 04/27/22 10:35 04/27/22 10:25 04/27/22 10:15 04/27/22 10:05 04/27/22 07:31 Pain Intensity Right Shoulder: Pain Intensity: 7 Transfer of Care Handoff Completed per policy Notes Mental Status: alert / awake / arousable and participated in evaluation Patient Amnestic to Procedure: Yes Nausea / Vomiting: adequately controlled Pain: adequately controlled Airway Patency, RR, SpO2: stable & adequate BP & HR: stable & adequate Hydration State: stable & adequate Anesthetic Complications: no major complications apparent and Pt Satisfied with anesthetic care
[2022-04-27] MEDS ORDERED: MAGNESIUM HYDROXIDE SUSP 30 ML UDC PO PRN (14:27)
[2022-04-27] MEDS ORDERED: NALOXONE HCL 0.4 MG/1 ML VIAL/CARP IV PRN (14:27)
[2022-04-27] MEDS ORDERED: METOCLOPRAMIDE HCL INJ 5 MG/ML 2 ML VIAL IV PRN (14:27)
[2022-04-27] MEDS ORDERED: bisacodyL 10 MG SUPP PR PRN (14:27)
[2022-04-27] MEDS ORDERED: oxyCODONE HCL IR 5 MG TAB (IMMEDIATE RELEASE) PO PRN (14:27)
[2022-04-27] MEDS: SODIUM CHLORIDE 0.9% 1000ML 1,000 ML IV SCH ×2 (15:20→23:59)
[2022-04-27] MEDS: IBUPROFEN 600 MG TAB PO SCH ×2 (15:21→21:22)
[2022-04-27] MEDS: ACETAMINOPHEN 500 MG TAB PO SCH ×2 (18:12→23:58)
[2022-04-27] MEDS ORDERED: OLMESARTAN MEDOXOMIL 40 MG TAB PO SCH (21:00)
[2022-04-27] MEDS ORDERED: CHOLECALCIFEROL 1,000 UNITS 25 MCG TAB PO SCH (21:00)
[2022-04-27] MEDS ORDERED: SENNA 8.6 MG TAB PO SCH (21:00)
[2022-04-27] MEDS ORDERED: MELATONIN 3 MG TAB PO SCH (21:00)
[2022-04-27] MEDS: DOCUSATE SODIUM 100 MG CAP PO SCH (21:22)
[2022-04-28] MEDS: ceFAZolin 2000MG 2,000 MG/15 ML SYR IV SCH (02:31)
[2022-04-28] MEDS: IBUPROFEN 600 MG TAB PO SCH ×2 (02:31→08:22)
[2022-04-28] MEDS: ACETAMINOPHEN 500 MG TAB PO SCH (06:11)
[2022-04-28] MEDS ORDERED: LEVOTHYROXINE SODIUM 50 MCG TABLET PO SCH (06:30)
[2022-04-28 06:56] LABS: Basophils # (auto) 0.02 K/uL (0-0.2); Basophils % (auto) 0.2 %; Eosinophils # (auto) 0.01 K/uL (0-0.50); Eosinophils % (auto) 0.1 %; Immature Granulocytes # (auto) 0.03 K/uL (0.00-0.02); Immature Granulocytes % (auto) 0.3 %; Lymphocytes # (auto) 1.42 K/uL (1.2-3.4); Lymphocytes % (auto) 15.5 %; Mean Corpuscular Hemoglobin 27.9 pg (25.0-34.0); Mean Corpuscular Hgb Conc 32.4 g/dL (32.0-36.0); Monocytes % (auto) 6.5 %; Neutrophils # (auto) 7.11 K/uL (1.4-6.5); Neutrophils % (auto) 77.4 %; Platelet Count 166 K/uL (130-400); RDW Coefficient of Variation 14.2 % (11.5-14.5); RDW Standard Deviation 44.4 fL (36.4-46.3); White Blood Count 9.19 K/ul (4.8-10.8)
[2022-04-28 07:24] LABS: BUN Creatinine Ratio 16.8 (10-20); Calcium 9.3 mg/dl (8.5-10.1); Creatinine Clr Calc Pharmacy 34.4 ml/min; Est GFR (African American) 66.5 ml/min; Est GFR (Non-African American) 57.4 ml/min; Potassium 4.3 mmol/L (3.5-5.1)
[2022-04-28] MEDS: DOCUSATE SODIUM 100 MG CAP PO SCH (08:23)
[2022-04-28] MEDS ORDERED: MULTIVITAMIN TAB PO SCH (09:00)
[2022-04-28] MEDS ORDERED: ASPIRIN 325 MG ECTAB PO SCH (09:00)
[2022-04-28] MEDS ORDERED: amLODIPine BESYLATE 5 MG TAB PO SCH (09:00)
[2022-04-28] MEDS ORDERED: FAMOTIDINE 20 MG TAB PO SCH (09:00)
[2022-04-28] MEDS ORDERED: SERTRALINE HCL 100 MG TABLET PO SCH (09:00)
--- NOTE | 2022-04-28 09:39 | Orthopedic Progress Note ---
Date of Service April 28, 2022 Assessment & Plan (1) Right rotator cuff tear arthropathy: Plan: Day 1 status post right reverse total shoulder arthroplasty PT/OT protocols. Nonweightbearing of the right upper extremity. PT prophylaxis-aspirin p.o. daily, SCDs. Pain management as written. C planning-patient is planning for outpatient PT upon discharge. Plan for discharge to home today. Admission and Anticipated Discharge Date Admission Date: April 27, 2022 Subjective Postop day 1 Patient currently going through her occupational therapy session. Patient ambulating out of her bathroom with sling in place. Patient is ambulating well. She states she feels well this morning. Pain is controlled. Denies shortness of breath, chest pain, lightheadedness. He is hoping to go home today. Physical Exam Physical Exam: Silverlon dressing is clean, dry, and intact. Good range of motion of her fingers and wrist of the operative side. Minimal residual numbness and tingling in the fingers. There are refills less than 2 seconds. S ling is in place. Results & Data ([facility]) Vital Signs (Past 12 Hours) Vital Signs Temp Pulse Resp BP Pulse Ox O2 Del Method O2 Flow Rate 04/28/22 08:11 36.9 C 71 16 131/68 93 Room Air 04/28/22 02:07 36.4 C L 74 16 118/69 96 Nasal Cannula 2 04/27/22 21:53 36.5 C 71 17 99/54 L 94 Nasal Cannula 2 Laboratory Results Laboratory Results WBC 9.19 K/ul (4.8-10.8) 04/28/22 06:38 RBC 4.30 M/uL (3.93-5.22) 04/28/22 06:38 Hgb 12.0 g/dl (12.0-16.0) 04/28/22 06:38 Hct 37.0 % (34.1-44.9) 04/28/22 06:38 MCV 86.0 fL (80.0-100.0) 04/28/22 06:38 MCH 27.9 pg (25.0-34.0) 04/28/22 06:38 MCHC 32.4 g/dL (32.0-36.0) 04/28/22 06:38 RDW Std Deviation 44.4 fL (36.4-46.3) 04/28/22 06:38 RDW Coeff of Lynette 14.2 % (11.5-14.5) 04/28/22 06:38 Plt Count 166 K/uL (130-400) 04/28/22 06:38 MPV 10.0 fL (9.4-12.3) 04/28/22 06:38 Immature Gran % (Auto) 0.3 % 04/28/22 06:38 Neut % (Auto) 77.4 % 04/28/22 06:38 Lymph % (Auto) 15.5 % 04/28/22 06:38 [place] % (Auto) 6.5 % 04/28/22 06:38 Eos % (Auto) 0.1 % 04/28/22 06:38 Baso % (Auto) 0.2 % 04/28/22 06:38 Neut # (Auto) 7.11 K/uL (1.4-6.5) H 04/28/22 06:38 Lymph # (Auto) 1.42 K/uL (1.2-3.4) 04/28/22 06:38 [place] # (Auto) 0.60 K/uL (0.24-0.82) 04/28/22 06:38 Eos # (Auto) 0.01 K/uL (0-0.50) 04/28/22 06:38 Baso # (Auto) 0.02 K/uL (0-0.2) 04/28/22 06:38 Immature Gran # (Auto) 0.03 K/uL (0.00-0.02) H 04/28/22 06:38 Sodium 136 mmol/L (136-145) 04/28/22 06:38 Potassium 4.3 mmol/L (3.5-5.1) 04/28/22 06:38 Chloride 104 mmol/L (98-107) 04/28/22 06:38 Carbon Dioxide 26 mmol/L (21-32) 04/28/22 06:38 Anion Gap 6 (3-11) 04/28/22 06:38 BUN 16 mg/dl (6-23) 04/28/22 06:38 Creatinine 0.95 mg/dl (0.6-1.2) 04/28/22 06:38 Est Cr Clr Drug Dosing 34.4 ml/min 04/28/22 06:38 Est GFR ( Amer) 66.5 ml/min 04/28/22 06:38 Est GFR (Non-Af Amer) 57.4 ml/min 04/28/22 06:38 BUN/Creatinine Ratio 16.8 (10-20) 04/28/22 06:38 Glucose 91 mg/dl (70-99(Fasting)) 04/28/22 06:38 POC Glucose 101 mg/dl (70-99) H 04/27/22 07:20 Calcium 9.3 mg/dl (8.5-10.1) 04/28/22 06:38 SARS-CoV-2, RNA, NAAT NEGATIVE (NEGATIVE) 04/27/22 07:18 Blood Type A Negative 04/27/22 07:16 Antibody Screen NEGATIVE 04/27/22 07:16 Impressions Shoulder X-Ray 04/27/22 12:49 XR shoulder RT min 2V routine CLINICAL HISTORY: Post shoulder surgery COMPARISON STUDY: None. FINDINGS: Status post reverse right total shoulder arthroplasty. The hardware is intact. No fracture or dislocation. IMPRESSION: Status post reverse right total shoulder arthroplasty. No evidence for hardware complication. ACT 112: Negative or not required by law. Electronically signed by: Quentin John M.D. 04/27/2022 1:34 PM
--- NOTE | 2022-04-28 09:56 | Discharge Summary ---
Date of Service April 28, 2022 Admission HPI Per Admitting Provider Ms. Mcclure returns for her right shoulder. Again, she has noticed worsening pain in her right shoulder since she has been relying on it more after her left shoulder replacement. Again, when she first presented to me, she had bilateral shoulder pain and weakness, left greater than right, without significant improvement after previous shoulder surgeries by Dr. Bui. She previously underwent a right shoulder rotator cuff repair in February of 2018. She denies any recurrent injury to her right shoulder after that surgery, but has had persistent pain and poor function in her right shoulder. The pain is waking her up at night. She has had at least 3 injections in that right shoulder, the last being around August 2021, without significant improvement in her pain or function. Admission Exam Per Admitting Provider Physical Exam: Examination of the right shoulder reveals significant limitation in shoulder range of motion due to pain, with palpable crepitus during motion. She can only achieve about 100 degrees of active abduction, and 15 degrees of external rotation. Rotator cuff strength is globally weak. Principal Diagnosis Right shoulder rotator cuff arthropathy Discharge Data Allergies Allergy/AdvReac Type Severity Reaction Status Date / Time phenytoin [From Dilantin] Allergy Unknown STARTED Verified 04/27/22 07:22 ITCHY...PROGRESSED TO LOSS OF CONSCIOUSNESS Procedures Performed Operation Date: 04/27/22 09:30 Actual Procedures p Right Total Shoulder Arthroplasty Reverse, Case placed on hold due to equipment. (Right) - Viral Corral M.D. Operation Date: 04/27/22 16:35 Actual Procedures p Right Revesre Total Shoulder Arthroplasty(Right) - Viral Corral M.D. Ordered Studies 04/27/22 05:00 US - OR guided needle placemen Routine Hospital Course (1) Right rotator cuff tear arthropathy: Patient:NETTIE MCCLURE Admit Date:04/27/22 MR#:[id number] Att Phy:Viral Corral M.D. Acct ID:[id number] Karrie Phy:PCP,NO Date:1945 Fam Phy: Age:77 Location:3E Sex:F Room/Bed:[facility] cc: ~ *NOTICE TO RECEIVING LIBERTARIAN/AGENCY This information is strictly Confidential and protected under 5gig law. [place] law prohibits you from making any further disclosure of this information unless further disclosure is expressly permitted by the written consent of the person to whom it pertains or is authorized by law. A general authorization for the release of medical or other information is not sufficient for this purpose. Hospital accepts no responsibility if the information is made available to any other person, INCLUDING THE PATIENT. Date of Service April 28, 2022 Assessment & Plan (1) Right rotator cuff tear arthropathy: Plan: Day 1 status post right reverse total shoulder arthroplasty PT/OT protocols. Nonweightbearing of the right upper extremity. PT prophylaxis-aspirin p.o. daily, SCDs. Pain management as written. C planning-patient is planning for outpatient PT upon discharge. Plan for discharge to home today. Admission and Anticipated Discharge Date Admission Date: April 27, 2022 Subjective Postop day 1 Patient currently going through her occupational therapy session. Patient ambulating out of her bathroom with sling in place. Patient is ambulating well. She states she feels well this morning. Pain is controlled. Denies shortness of breath, chest pain, lightheadedness. He is hoping to go home today. Physical Exam Physical Exam: Silverlon dressing is clean, dry, and intact. Good range of motion of her fingers and wrist of the operative side. Minimal residual numbness and tingling in the fingers. There are refills less than 2 seconds. [address] is in place. Results & Data ([facility]) Vital Signs (Past 12 Hours) Vital Signs Temp Pulse Resp BP Pulse Ox O2 Del Method O2 Flow Rate 04/28/22 08:11 36.9 C 71 16 131/68 93 Room Air 04/28/22 02:07 36.4 C L 74 16 118/69 96 Nasal Cannula 2 04/27/22 21:53 36.5 C 71 17 99/54 L 94 Nasal Cannula 2 Laboratory Results Laboratory Results WBC 9.19 K/ul (4.8-10.8) 04/28/22 06:38 RBC 4.30 M/uL (3.93-5.22) 04/28/22 06:38 Hgb 12.0 g/dl (12.0-16.0) 04/28/22 06:38 Hct 37.0 % (34.1-44.9) 04/28/22 06:38 MCV 86.0 fL (80.0-100.0) 04/28/22 06:38 MCH 27.9 pg (25.0-34.0) 04/28/22 06:38 MCHC 32.4 g/dL (32.0-36.0) 04/28/22 06:38 RDW Std Deviation 44.4 fL (36.4-46.3) 04/28/22 06:38 RDW Coeff of Lynette 14.2 % (11.5-14.5) 04/28/22 06:38 Plt Count 166 K/uL (130-400) 04/28/22 06:38 MPV 10.0 fL (9.4-12.3) 04/28/22 06:38 Immature Gran % (Auto) 0.3 % 04/28/22 06:38 Neut % (Auto) 77.4 % 04/28/22 06:38 Lymph % (Auto) 15.5 % 04/28/22 06:38 [place] % (Auto) 6.5 % 04/28/22 06:38 Eos % (Auto) 0.1 % 04/28/22 06:38 Baso % (Auto) 0.2 % 04/28/22 06:38 Neut # (Auto) 7.11 K/uL (1.4-6.5) H 04/28/22 06:38 Lymph # (Auto) 1.42 K/uL (1.2-3.4) 04/28/22 06:38 [place] # (Auto) 0.60 K/uL (0.24-0.82) 04/28/22 06:38 Eos # (Auto) 0.01 K/uL (0-0.50) 04/28/22 06:38 Baso # (Auto) 0.02 K/uL (0-0.2) 04/28/22 06:38 Immature Gran # (Auto) 0.03 K/uL (0.00-0.02) H 04/28/22 06:38 Sodium 136 mmol/L (136-145) 04/28/22 06:38 Potassium 4.3 mmol/L (3.5-5.1) 04/28/22 06:38 Chloride 104 mmol/L (98-107) 04/28/22 06:38 Carbon Dioxide 26 mmol/L (21-32) 04/28/22 06:38 Anion Gap 6 (3-11) 04/28/22 06:38 BUN 16 mg/dl (6-23) 04/28/22 06:38 Creatinine 0.95 mg/dl (0.6-1.2) 04/28/22 06:38 Est Cr Clr Drug Dosing 34.4 ml/min 04/28/22 06:38 Est GFR ( Amer) 66.5 ml/min 04/28/22 06:38 Est GFR (Non-Af Amer) 57.4 ml/min 04/28/22 06:38 BUN/Creatinine Ratio 16.8 (10-20) 04/28/22 06:38 Glucose 91 mg/dl (70-99(Fasting)) 04/28/22 06:38 POC Glucose 101 mg/dl (70-99) H 04/27/22 07:20 Calcium 9.3 mg/dl (8.5-10.1) 04/28/22 06:38 SARS-CoV-2, RNA, NAAT NEGATIVE (NEGATIVE) 04/27/22 07:18 Blood Type A Negative 04/27/22 07:16 Antibody Screen NEGATIVE 04/27/22 07:16 Impressions Shoulder X-Ray 04/27/22 12:49 XR shoulder RT min 2V routine CLINICAL HISTORY: Post shoulder surgery COMPARISON STUDY: None. FINDINGS: Status post reverse right total shoulder arthroplasty. The hardware is intact. No fracture or dislocation. IMPRESSION: Status post reverse right total shoulder arthroplasty. No evidence for hardware complication. ACT 112: Negative or not required by law. Electronically signed by: Quentin John M.D. 04/27/2022 1:34 PM Total Time Total Time Spent Total Time Spent (In Minutes): 5 Discharge Plan Discharge Items Patient Disposition: Home - Self-Care Reason For Visit: Right Shoulder Rotator Cuff Tear Arthropathy Discharge Diagnosis: Right shoulder rotator cuff tear arthropathy Activity: Per Instructions section Weightbearing: Right non-weightbearing Non-emergency contact: Surgeon Call non-emergency contact if: your pain is not controlled, your temperature is above 101.5, your wound has increased redness and your wound has increased drainage Follow-up/Referrals: Viral Corral M.D. [Physician] - (Follow-up with Dr. Corral in 2 weeks from the day of your surgery for your first postoperative visit.) PCP,NO [Primary Care Provider] - Diet: Regular Addtl Attending Provider Instructions: Things to Watch Out For -Go to the Emergency Room if you have sudden onset of nausea, vomiting, chest pain, shortness of breath, or uncontrollable pain. -Call the clinic or go to the Emergency Room if you have a sudden increase in the amount of wound drainage or the drainage becomes thick, yellow or green, or foul-smelling. -For routine questions, call the clinic at [phone] during regular business hours (8am-5pm). For urgent issues after regular business hours, you may call the clinic to be connected to the on-call physician. Dressings -A special waterproof, silver-impregnated dressing was placed on your shoulder. Keep this dressing in place for 1 week after surgery. You may shower with the waterproof dressing in place, but do not soak the dressing in the bathtub or pool. -One week after surgery, you may remove the waterproof dressing. You may continue to shower, and let water run BRIEFLY over the incision, but do not soak the incision in the bathtub or pool for 2 weeks. You may also gently clean the incision with mild soap and water; pat the incision dry after cleaning-do not rub the incision. Apply a new dressing daily thereafter. Shoulder Exercises -Keep your operative shoulder in the sling for comfort, except as detailed below. -You should come out of the sling 4-5 times a day for passive pendulum exercises: lean over and swing your arm in a circular pattern. -You should also do active-assisted forward flexion exercises: use your opposite hand to lift your operative arm forward to 90 degrees. -Do not flex your elbow (curl motion) or supinate your forearm (rotating palm up) against resistance. -Do not use your arm to push yourself up out of bed or up from a seated position. Ice Pack -You may use an ice pack for pain relief. You should use it 20-30 minutes at a time. Place a towel between the ice pack and your skin to prevent frostbite. -You should use the ice pack fairly regularly for the first 1-2 weeks after surgery to help reduce pain and inflammation. -About 2 weeks after your surgery, you should start using heat to loosen up your shoulder prior to doing your stretching exercises, then use the cooling sleeve after your exercises are complete to reduce swelling and pain. Pain Medicines -Your prescriptions for pain medications have already been sent to the pharmacy on file at [facility]. -You have been prescribed an anti-inflammatory (Motrin/ibuprofen) and a non- narcotic pain medicine (Tylenol/acetaminophen). These are your primary pain medications. Take them each every 6 hours as instructed. It is recommended that you stagger these medicines every 3 hours (i.e. take ibuprofen at 8:00 am, then acetaminophen at 11:00 am, then ibuprofen at 2:00 pm, etc) -DO NOT take any additional anti-inflammatories (Advil, Aleve/naproxen, Mobic/meloxicam, Celebrex) or any additional Tylenol/acetaminophen products with these prescribed medications. -You have also been prescribed an additional narcotic pain medication (oxycodone). Take this medicine ONLY for breakthrough pain not controlled by the ibuprofen and acetaminophen. -Do not drive or operate heavy machinery while taking the narcotic medication. -Common side effects of narcotic pain medicines include itching, nausea, constipation, and feeling "loopy". However, if you develop a rash or hives, stop taking the medicine and call the clinic. If you develop swelling in your throat or difficulty breathing, go to the Emergency Room or call 911 IMMEDIATELY. -You may take over the counter stool softeners if needed for constipation. Aspirin -Take a full strength (325mg) aspirin every day for 4 weeks (28 days) to prevent blood clots. -If you were taking a baby aspirin (81mg) prior to surgery, you may resume taking this 81mg dose after you complete the 28-day course of the 325mg strength dose; do not take the 325mg dose in addition to your 81mg dose. -Be aware that you will bruise easier while taking Aspirin; this is normal. However, if you develop a significantly large area of swelling after an injury, or have a cut that will not stop bleeding, call the clinic or go to the Emergency Room immediately. Pending Studies at Discharge: No Stand-Alone Forms: My [facility] What's in My Handbag Medications and DC Order Prescriptions: Continued famotidine 20 mg Tablet 20 mg PO QAM amlodipine 10 mg Tablet 10 mg PO QAM levothyroxine 50 mcg Tablet 50 mcg PO QAM sertraline 50 mg Tablet 100 mg PO QAM Label Comments: 100 it says on the paper from the dr olmesartan 40 mg Tablet 40 mg PO QPM cholecalciferol (vitamin D3) [Vitamin D3] 50 mcg (2,000 unit) Capsule 50 mcg PO QPM melatonin 5 mg Capsule 5 mg PO HS Discontinued aspirin 81 mg PO DAILY Discharge Orders: Discharge Order (Routine); Ordered 04/28/22 Ordered By: Param Weathers Admission Data Admit Date/Time: 04/27/22 12:49 Attending Provider: Viral Corral Admit Provider: Viral Corral Primary Care Provider: PCP,NO
== END 2022-04-28 11:12 | disposition home or self-care (01) | DRG 483 ==
LOC: ASU 06:39 → 3E 12:49